=== PATIENT | female | born 1985 | race Caucasian/White ===

== ENCOUNTER 2017-05-09 11:36 | Outpatient (CLI) | payer OTHER ==
--- NOTE | 2017-05-09 14:22 | Ultrasound Report ---
RIGHT UPPER QUADRANT ULTRASOUND: HISTORY: Elevated liver enzymes, recent pancreatitis, pain.. Technique: Transabdominal ultrasound imaging with Doppler interrogation. FINDINGS: No comparison at this facility. The liver parenchyma is echogenic and attenuates the ultrasound beam consistent with mild fatty infiltration. The liver is borderline enlarged. No focal liver mass or surface nodularity is detected. The gallbladder has been surgically removed. The CBD measures 4.5 mm. No intrahepatic biliary dilatation. Images of the pancreas, right kidney and proximal aorta are within normal limits. No perihepatic ascites. IMPRESSION: Hepatic steatosis. Cholecystectomy.
== END 2017-05-09 11:37 | disposition home or self-care (01) ==
LOC: US 11:36
PROVIDERS: ATTEND Internal Medicine
DX: K76.0 Fatty (change of) liver, not elsewhere classified (principal); K85.90 Acute pancreatitis without necrosis or infection, unspecified; R94.5 Abnormal results of liver function studies; Z90.49 Acquired absence of other specified parts of digestive tract
CPT/HCPCS: 76705

== ENCOUNTER 2017-11-14 18:14 | Outpatient (CLI) | payer MEDICAID ==
[2017-11-14 19:13] VITALS: BP 139/82
== END 2017-11-14 20:32 | disposition home or self-care (01) ==
LOC: TRG 18:14
PROVIDERS: ATTEND Obstetrics & Gynecology
DX: O47.03 False labor before 37 completed weeks of gestation, third trimester (principal); Z3A.32 32 weeks gestation of pregnancy
CPT/HCPCS: 59025

== ENCOUNTER 2017-11-28 17:15 | Outpatient (CLI) | payer MEDICAID ==
--- NOTE | 2017-11-28 18:30 | Ultrasound Report ---
FINAL REPORT PROCEDURE: Ultrasound biophysical profile without nonstress test. TECHNIQUE: Sonographic evaluation for breathing, movement, tone, and amniotic fluid volume was performed. CPT 06888 HISTORY: Evaluate well-being. COMPARISON: No prior studies are available for comparison. FINDINGS: Amniotic fluid volume: 2. breathin. movement: 2. tone: 2. Score: 8 of 8. IMPRESSION: Normal biophysical profile.
--- NOTE | 2017-11-28 18:33 | Ultrasound Report ---
FINAL REPORT PROCEDURE: Limited obstetrical ultrasound. TECHNIQUE: Real-time limited sonographic examination was performed for evaluation of size, position, heartbeat, fluid volume for each fetus with image documentation (1 or more fetuses). CPT 45781 HISTORY: Evaluate well-being and amniotic fluid index. COMPARISON: No prior studies are available for comparison. FINDINGS: There is a single viable fetus in cephalic presentation. Cardiac activity is documented at 174 beats per minute. The amniotic fluid index measures 23.4 centimeters. IMPRESSION: Viable fetus in cephalic presentation. MARTIN measures 23.4 centimeters.
[2017-11-28 18:37] VITALS: BP 133/74
[2017-11-28] MEDS ORDERED: LACTATED RINGERS 1,000 ML IV ONE (18:59)
== END 2017-11-28 20:05 | disposition home or self-care (01) ==
LOC: TRG 17:15
PROVIDERS: ATTEND Obstetrics & Gynecology
DX: O47.03 False labor before 37 completed weeks of gestation, third trimester (principal); Z3A.34 34 weeks gestation of pregnancy
CPT/HCPCS: 59025; 76815; 76819; 96360; J7120

== ENCOUNTER 2017-12-12 15:59 | Outpatient (CLI) | payer MEDICAID ==
[2017-12-12] MEDS ORDERED: LACTATED RINGERS 500 ML IV ONE (16:12)
[2017-12-12 17:24] LABS: Bacteria,Urine 2+ /HPF (Negative); Bilirubin,Urine NEG (Negative); Blood,Urine NEG (Negative); Color,Urine Yellow (Yellow); Mucus,Urine FEW /HPF; Urobilinogen,Urine < 2.0 mg/dL (<2.0)
[2017-12-12 17:31] LABS: Hemoglobin 11.9 gm/dl (10.1-14.3); Mean Corpuscular HGB Conc 34 % (30-34); Mean Corpuscular Hemoglobin 29 pg (28-32); Mean Corpuscular Volume 85 fl (79-97); Platelet Count 230 K/mm3 (140-440); Red Blood Count 4.12 M/mm3 (3.65-5.03); Red Cell Distribution Width 15.1 % (13.2-15.2)
[2017-12-12 18:19] LABS: Alanine Aminotransferase 16 units/L (7-56)
== END 2017-12-12 19:05 | disposition home or self-care (01) ==
LOC: TRG 15:59
PROVIDERS: ATTEND Obstetrics & Gynecology
DX: O47.03 False labor before 37 completed weeks of gestation, third trimester (principal); Z3A.36 36 weeks gestation of pregnancy
CPT/HCPCS: 36415; 59025; 81001; 82565; 83615; 84450; 84460; 84550; 85027

== ENCOUNTER 2017-12-19 15:14 | Inpatient (IN) | payer MEDICAID ==
--- NOTE | 2017-12-19 16:50 | History and Physical Report ---
History of Present Illness Date of examination: 12/19/17 Date of admission: 12/19/17 15:14 Chief complaint: Induction for Pre-E History of present illness: 32 y/o at 37+2 wks presents for labour induction; she is a [facility] patient. Essential hx is patient with recently diagnosed pre-eclampsia presents to clinic with severe headache. Her BP has been labile with range 120-150's/80- 90's. She was recently started on anti-HTN. She also has pregestational DM managed by [facility]. Her insulin regimine is 20N12R/18R/32N She denies LOF/VB/UC's +FM Past History Past Medical History: diabetes Past Surgical History: no surgical history [employer] History: denies: chlamydia, gonorrhea, hepatitis B, hepatitis C, herpes, HIV , syphilis, trichomonas Social history: full code. denies: smoking, alcohol abuse, prescription drug abuse, IV drug use - Obstetrical History Expected Date of Delivery: 01/07/18 Actual Gestation: 37 Week(s) 2 Day(s) : 1 Medications and Allergies Allergies Allergy/AdvReac Type Severity Reaction Status Date / Time Iodinated Contrast- Oral and AdvReac Severe Shortness Unverified 12/19/17 16:01 IV Dye of Breath [Iodinated Contrast Media - IV Dye] Home Medications Medication Instructions Recorded Confirmed Last Taken Type Docusate Sodium [Colace] 100 mg PO QDAY PRN 12/12/17 12/12/17 12/12/17 08:30 History Ferrous Gluconate [Iron 256 MG tab] 1 tab PO QDAY 12/12/17 12/12/17 12/12/17 08: 30 History Insulin NPH Human Isophane 20 units SUB-Q QAM 12/12/17 12/12/17 12/12/17 09:00 History Insulin NPH Human Isophane 38 units SUB-Q QHS 12/12/17 12/12/17 12/11/17 23:00 History Insulin Regular, Human 12 units SUB-Q QAM 12/12/17 12/12/17 12/12/17 09:00 History Insulin Regular, Human 20 units SUB-Q QPM 12/12/17 12/12/17 12/11/17 19:00 History Pnv No.95/Ferrous Fum/Folic AC 1 tab PO QDAY 12/12/17 12/12/17 12/12/17 08:30 History [ Formula Tablet] Review of Systems Constitutional: no fever, no chills, no malaise, no lethargy, no chronic headaches Eyes: no blurred vision, no diplopia, no photophobia, no blind spots Ears, nose, mouth and throat: headache Cardiovascular: high blood pressure, no chest pain, no orthopnea, no rapid/ irregular heart beat, no lightheadedness, no shortness of breath, no dyspnea on exertion Respiratory: no cough, no shortness of breath, no dyspnea on exertion Gastrointestinal: no abdominal pain, no nausea, no vomiting, no heartburn, no indigestion Genitourinary: no vaginal bleeding, no leakage of fluid, no pelvic pain, no contractions - Vital Signs Vital signs: Vital Signs Temp Pulse Resp BP Pulse Ox 97.4 F L 94 H 18 131/79 97 12/19/17 16:02 12/19/17 16:02 12/19/17 16:02 12/19/17 16:02 12/19/17 16:02 Temp Pulse Resp BP Pulse Ox 97.4 F L 94 H 18 131/79 97 12/19/17 16:02 12/19/17 16:02 12/19/17 16:02 12/19/17 16:02 12/19/17 16:02 - Physical Exam Cardiovascular: Regular rate, Normal S1, Normal S2 Lungs: Positive: Clear to auscultation, Normal air movement Abdomen: Positive: normal appearance, soft. Negative: distention, tenderness, guarding, rigidity Genitourinary (Female): Positive: normal external genitalia Uterus: Positive: enlarged (EFW ~ 3500) Extremities: Positive: normal Results All other labs normal. Assessment and Plan A: 32 y/o at 37+2 wks with pre-E and now headache -Stable -GBS pos -Insulin is 20N12R Q AM; 18R Qpm and 32N Qhs P: -Admit -Routine labs -Start Mag for BP persistently in severe range -SSI insulin -Start induction process -Start GBS prophylaxis in active labour -Anticipate - Patient Problems (1) 37 weeks gestation of Current Visit: Yes Status: Acute (2) Pre-eclampsia Current Visit: Yes Status: Acute
[2017-12-19] MEDS ORDERED: BRETHINE IVP PRN (16:57)
[2017-12-19] MEDS ORDERED: CERVIDIL VG ONE (16:57)
[2017-12-19] MEDS ORDERED: ePHEDrine SULFATE IV PRN (16:57)
[2017-12-19] MEDS ORDERED: BRETHINE SUB-Q PRN (16:57)
[2017-12-19] MEDS ORDERED: XYLOCAINE 2% INFILTRATI ONE (16:57)
[2017-12-19] MEDS ORDERED: MINERAL OIL PO PRN (16:57)
[2017-12-19] MEDS ORDERED: LACTATED RINGERS 1,000 ML ONE (16:58)
[2017-12-19] MEDS ORDERED: PITOCin/NS 20 UNIT/1000ML DRIP 20 UNITS/1,000 ML BAG IV SCH (17:00)
[2017-12-19] MEDS ORDERED: PITOCin/NS 30 UNIT/500ML 30 UNITS/500 ML BAG IV SCH (17:00)
[2017-12-19] MEDS ORDERED: D50W (25GM) Syringe IV PRN (17:01)
[2017-12-19] MEDS ORDERED: TYLENOL PO ONE (17:30)
[2017-12-19 17:49] LABS: Hematocrit 37.3 % (30.3-42.9); Hemoglobin 12.2 gm/dl (10.1-14.3); Mean Corpuscular HGB Conc 33 % (30-34); Mean Corpuscular Hemoglobin 29 pg (28-32); Mean Corpuscular Volume 88 fl (79-97); Platelet Count 223 K/mm3 (140-440); Red Blood Count 4.25 M/mm3 (3.65-5.03); Red Cell Distribution Width 15.1 % (13.2-15.2)
[2017-12-19 18:03] LABS: Alanine Aminotransferase 19 units/L (7-56); BUN/Creatinine Ratio 20; Blood Urea Nitrogen 10 mg/dL (7-17); Calcium 8.8 mg/dL (8.4-10.2); Hemolysis Index 18
[2017-12-19 18:04] LABS: Bacteria,Urine 1+ /HPF (Negative); Bilirubin,Urine NEG (Negative); Blood,Urine NEG (Negative); Color,Urine Yellow (Yellow); Mucus,Urine 1+ /HPF; Protein,Urine <15 mg/dL mg/dL (Negative); Urobilinogen,Urine < 2.0 mg/dL (<2.0)
[2017-12-19] MEDS: HumuLIN R SUB-Q SCH ×3 (19:57→23:06)
[2017-12-19] MEDS: LACTATED RINGERS 1,000 ML IV SCH (21:45)
[2017-12-19] MEDS: NORMODYNE PO SCH (22:53)
[2017-12-19] MEDS: TYLENOL PO PRN (23:20)
[2017-12-20] MEDS: SUBLIMAZE IV PRN ×2 (00:53→20:53)
[2017-12-20] MEDS: HumuLIN R SUB-Q SCH ×4 (05:31→20:54)
[2017-12-20] MEDS: TYLENOL PO PRN ×2 (06:03→15:53)
[2017-12-20] MEDS: LACTATED RINGERS 1,000 ML IV SCH ×3 (07:51→23:29)
--- NOTE | 2017-12-20 09:26 | Progress Note ---
Assessment and Plan - Patient Problems (1) 37 weeks gestation of Current Visit: Yes Status: Acute (2) Pre-eclampsia Current Visit: Yes Status: Acute Plan to address problem: Cervidil #[address] Will continue BP, DTRs monitoring. Toxemia labs and Magnesium if BP becomes elevated. (3) Type 2 diabetes mellitus affecting in third trimester, antepartum Current Visit: Yes Status: Acute Plan to address problem: Will continue glucose monitoring and sliding scale insulin. Subjective - Subjective Date of service: 12/20/17 Principal diagnosis: Pre-gest DM, pre-eclampsia Interval history: Patient was admitted yesterday for labor induction secondary to pre-eclampsia and pre-gest DM. BP was elevated on admission, but toxemia labs were normal. Since admission, BP has been in the 120/80's. She denies any PALAFOX, visual changes or RUQ pain. Glucose has been stable, she is on a sliding scale. She reports good movement. Cervidil #1 was removed this AM. FHT is CAT 1. Cervix: closed/long/post. Objective - Vital Signs Vital Signs: Vital Signs - 12hr 12/19/17 12/19/17 12/19/17 21:48 22:53 22:55 Temperature 97.4 F L Pulse Rate 87 97 H Respiratory 22 20 Rate Blood Pressure 134/82 Blood Pressure 132/72 [Right] O2 Sat by Pulse 97 97 Oximetry 12/19/17 12/19/17 12/20/17 23:20 23:58 00:53 Temperature Pulse Rate 90 Respiratory 18 20 Rate Blood Pressure Blood Pressure 119/67 [Right] O2 Sat by Pulse Oximetry 12/20/17 12/20/17 12/20/17 00:54 01:49 02:46 Temperature Pulse Rate 84 71 71 Respiratory Rate Blood Pressure Blood Pressure 150/94 132/71 136/80 [Right] O2 Sat by Pulse Oximetry 12/20/17 12/20/17 12/20/17 03:48 04:47 05:48 Temperature 98.2 F Pulse Rate 88 86 81 Respiratory 20 Rate Blood Pressure Blood Pressure 136/82 133/94 147/85 [Right] O2 Sat by Pulse 97 96 Oximetry 12/20/17 12/20/17 12/20/17 06:03 06:48 07:46 Temperature 99.0 F Pulse Rate 85 90 Respiratory 18 18 Rate Blood Pressure Blood Pressure 117/71 136/78 [Right] O2 Sat by Pulse Oximetry - Exam Cardiovascular: Normal S1, Normal S2 Lungs: Clear to auscultation Vulva: both: normal FHR: category 1 Uterine Contraction Monitor Mode: External Cervical Dilatation: 0 Cervical Effacement Percentage: 10 station: -3 Uterine Contraction Pattern: Absent Deep Tendon Reflex Grade: Normal +2 - Labs Labs: Abnormal Labs 12/19/17 12/19/17 12/19/17 17:00 17:00 22:55 WBC 11.1 H Carbon Dioxide 21 L Creatinine 0.5 L Glucose 111 H POC Glucose 108 H Alkaline Phosphatase 159 H Albumin 3.0 L 12/20/17 05:31 WBC Carbon Dioxide Creatinine Glucose POC Glucose 66 L Alkaline Phosphatase Albumin Laboratory Results - last 24 hr 12/19/17 12/19/17 12/19/17 17:00 17:00 17:00 WBC 11.1 H RBC 4.25 Hgb 12.2 Hct 37.3 MCV 88 MCH 29 MCHC 33 RDW 15.1 Plt Count 223 Sodium 137 Potassium 4.0 Chloride 102.6 Carbon Dioxide 21 L Anion Gap 17 BUN 10 Creatinine 0.5 L Estimated GFR > 60 BUN/Creatinine Ratio 20 Glucose 111 H POC Glucose Calcium 8.8 Total Bilirubin 0.20 AST 37 ALT 19 Alkaline Phosphatase 159 H Total Protein 6.8 Albumin 3.0 L Albumin/Globulin Ratio 0.8 Urine Color Urine Turbidity Urine pH Ur Specific [place] Urine Protein Urine Glucose (UA) Urine Ketones Urine Blood Urine Nitrite Urine Bilirubin Urine Urobilinogen Ur Leukocyte Esterase Urine WBC (Auto) Urine RBC (Auto) U Epithel Cells (Auto) Urine Bacteria (Auto) Urine Mucus Blood Type O POSITIVE Antibody Screen Negative 12/19/17 12/19/17 12/19/17 17:00 17:15 22:55 WBC RBC Hgb Hct MCV MCH MCHC RDW Plt Count Sodium Potassium Chloride Carbon Dioxide Anion Gap BUN Creatinine Estimated GFR BUN/Creatinine Ratio Glucose POC Glucose 89 108 H Calcium Total Bilirubin AST ALT Alkaline Phosphatase Total Protein Albumin Albumin/Globulin Ratio Urine Color Yellow Urine Turbidity Clear Urine pH 5.0 Ur Specific [place] 1.018 Urine Protein <15 mg/dl Urine Glucose (UA) Neg Urine Ketones Neg Urine Blood Neg Urine Nitrite Neg Urine Bilirubin Neg Urine Urobilinogen < 2.0 Ur Leukocyte Esterase Lg Urine WBC (Auto) 6.0 Urine RBC (Auto) 7.0 U Epithel Cells (Auto) 6.0 Urine Bacteria (Auto) 1+ Urine Mucus 1+ Blood Type Antibody Screen 12/20/17 05:31 WBC RBC Hgb Hct MCV MCH MCHC RDW Plt Count Sodium Potassium Chloride Carbon Dioxide Anion Gap BUN Creatinine Estimated GFR BUN/Creatinine Ratio Glucose POC Glucose 66 L Calcium Total Bilirubin AST ALT Alkaline Phosphatase Total Protein Albumin Albumin/Globulin Ratio Urine Color Urine Turbidity Urine pH Ur Specific [place] Urine Protein Urine Glucose (UA) Urine Ketones Urine Blood Urine Nitrite Urine Bilirubin Urine Urobilinogen Ur Leukocyte Esterase Urine WBC (Auto) Urine RBC (Auto) U Epithel Cells (Auto) Urine Bacteria (Auto) Urine Mucus Blood Type Antibody Screen
[2017-12-20] MEDS: CYTOTEC VG SCH ×2 (10:00→14:12)
[2017-12-20] MEDS: NORMODYNE PO SCH ×2 (11:22→22:05)
[2017-12-20] MEDS ORDERED: CERVIDIL VG ONE (17:50)
--- NOTE | 2017-12-20 17:51 | Progress Note ---
Assessment and Plan - Patient Problems (1) 37 weeks gestation of Current Visit: Yes Status: Acute (2) Pre-eclampsia Current Visit: Yes Status: Acute Plan to address problem: Will place another cervidil tonight. Will continue BP, DTRs monitoring. Toxemia labs tonight. monitoring. (3) Type 2 diabetes mellitus affecting in third trimester, antepartum Current Visit: Yes Status: Acute Plan to address problem: Will continue glucose monitoring, sliding scale insulin, and ADA diet. Subjective - Subjective Date of service: 12/20/17 Principal diagnosis: Pre-gest DM, pre-eclampsia Interval history: Patient was admitted yesterday for labor induction secondary to pre-eclampsia and pre-gest DM. BP was elevated on admission, but toxemia labs were normal. Since admission, BP has been in the 120/80's. She denies any PALAFOX, visual changes or RUQ pain. Glucose has been stable, she is on a sliding scale. She reports good movement. Cervidil #1 was removed this AM. Cytotec was placed today but she has felt no contractions. FHT is CAT 1. Cervix: closed/long/post. Objective - Vital Signs Vital Signs: Vital Signs - 12hr 12/20/17 12/20/17 12/20/17 06:03 06:48 07:46 Temperature 99.0 F Pulse Rate 85 90 Respiratory 18 18 Rate Blood Pressure Blood Pressure 117/71 136/78 [Right] 12/20/17 12/20/17 12/20/17 10:40 11:22 12:00 Temperature 98.6 F Pulse Rate 83 83 Respiratory 18 Rate Blood Pressure 159/79 Blood Pressure 159/79 [Right] 12/20/17 12/20/17 12/20/17 12:40 13:33 13:39 Temperature Pulse Rate 86 85 82 Respiratory Rate Blood Pressure Blood Pressure 146/80 144/84 150/90 [Right] 12/20/17 12/20/17 12/20/17 14:40 15:39 15:53 Temperature 98.4 F Pulse Rate 83 78 Respiratory 18 Rate Blood Pressure Blood Pressure 160/81 158/100 [Right] 12/20/17 12/20/17 12/20/17 16:10 16:25 16:30 Temperature 98.2 F Pulse Rate 75 77 Respiratory 18 Rate Blood Pressure Blood Pressure 157/85 151/102 [Right] 12/20/17 16:53 Temperature Pulse Rate 83 Respiratory Rate Blood Pressure Blood Pressure 140/86 [Right] - Exam Cardiovascular: Normal S1, Normal S2 Lungs: Clear to auscultation Vulva: both: normal FHR: category 1 Uterine Contraction Monitor Mode: External Cervical Dilatation: 0 Cervical Effacement Percentage: 10 station: -3 Uterine Contraction Pattern: Absent Deep Tendon Reflex Grade: Normal +2 - Labs Labs: Abnormal Labs 12/19/17 12/19/17 12/19/17 17:00 17:00 22:55 WBC 11.1 H Carbon Dioxide 21 L Creatinine 0.5 L Glucose 111 H POC Glucose 108 H Alkaline Phosphatase 159 H Albumin 3.0 L 12/20/17 12/20/17 05:31 11:59 WBC Carbon Dioxide Creatinine Glucose POC Glucose 66 L 65 L Alkaline Phosphatase Albumin Laboratory Results - last 24 hr 12/19/17 12/19/17 12/19/17 17:00 17:00 17:00 WBC 11.1 H RBC 4.25 Hgb 12.2 Hct 37.3 MCV 88 MCH 29 MCHC 33 RDW 15.1 Plt Count 223 Sodium Potassium Chloride Carbon Dioxide Anion Gap BUN Creatinine Estimated GFR BUN/Creatinine Ratio Glucose POC Glucose Calcium Total Bilirubin AST ALT Alkaline Phosphatase Total Protein Albumin Albumin/Globulin Ratio Urine Color Urine Turbidity Urine pH Ur Specific [place] Urine Protein Urine Glucose (UA) Urine Ketones Urine Blood Urine Nitrite Urine Bilirubin Urine Urobilinogen Ur Leukocyte Esterase Urine WBC (Auto) Urine RBC (Auto) U Epithel Cells (Auto) Urine Bacteria (Auto) Urine Mucus RPR Nonreactive Blood Type O POSITIVE Antibody Screen Negative 12/19/17 12/19/17 12/19/17 17:00 17:00 22:55 WBC RBC Hgb Hct MCV MCH MCHC RDW Plt Count Sodium 137 Potassium 4.0 Chloride 102.6 Carbon Dioxide 21 L Anion Gap 17 BUN 10 Creatinine 0.5 L Estimated GFR > 60 BUN/Creatinine Ratio 20 Glucose 111 H POC Glucose 108 H Calcium 8.8 Total Bilirubin 0.20 AST 37 ALT 19 Alkaline Phosphatase 159 H Total Protein 6.8 Albumin 3.0 L Albumin/Globulin Ratio 0.8 Urine Color Yellow Urine Turbidity Clear Urine pH 5.0 Ur Specific [place] 1.018 Urine Protein <15 mg/dl Urine Glucose (UA) Neg Urine Ketones Neg Urine Blood Neg Urine Nitrite Neg Urine Bilirubin Neg Urine Urobilinogen < 2.0 Ur Leukocyte Esterase Lg Urine WBC (Auto) 6.0 Urine RBC (Auto) 7.0 U Epithel Cells (Auto) 6.0 Urine Bacteria (Auto) 1+ Urine Mucus 1+ RPR Blood Type Antibody Screen 12/20/17 12/20/17 05:31 11:59 WBC RBC Hgb Hct MCV MCH MCHC RDW Plt Count Sodium Potassium Chloride Carbon Dioxide Anion Gap BUN Creatinine Estimated GFR BUN/Creatinine Ratio Glucose POC Glucose 66 L 65 L Calcium Total Bilirubin AST ALT Alkaline Phosphatase Total Protein Albumin Albumin/Globulin Ratio Urine Color Urine Turbidity Urine pH Ur Specific [place] Urine Protein Urine Glucose (UA) Urine Ketones Urine Blood Urine Nitrite Urine Bilirubin Urine Urobilinogen Ur Leukocyte Esterase Urine WBC (Auto) Urine RBC (Auto) U Epithel Cells (Auto) Urine Bacteria (Auto) Urine Mucus RPR Blood Type Antibody Screen
[2017-12-20 18:30] LABS: Hematocrit 34.4 % (30.3-42.9); Hemoglobin 11.4 gm/dl (10.1-14.3); Mean Corpuscular HGB Conc 33 % (30-34); Mean Corpuscular Hemoglobin 29 pg (28-32); Mean Corpuscular Volume 87 fl (79-97); Platelet Count 206 K/mm3 (140-440); Red Blood Count 3.98 M/mm3 (3.65-5.03); Red Cell Distribution Width 15.2 % (13.2-15.2)
[2017-12-20 18:53] LABS: Alanine Aminotransferase 17 units/L (7-56); Uric Acid 3.8 mg/dL (3.5-7.6)
[2017-12-20] MEDS ORDERED: AMBIEN PO PRN (23:20)
[2017-12-21] MEDS: HumuLIN R SUB-Q SCH ×4 (01:06→20:00)
[2017-12-21] MEDS: SUBLIMAZE IV PRN ×2 (01:21→06:32)
[2017-12-21] MEDS: CYTOTEC VG SCH ×3 (01:48→09:04)
[2017-12-21] MEDS: LACTATED RINGERS 1,000 ML IV SCH ×2 (06:33→13:35)
--- NOTE | 2017-12-21 09:15 | Progress Note ---
Assessment and Plan - Patient Problems (1) 37 weeks gestation of Current Visit: Yes Status: Acute (2) Pre-eclampsia Current Visit: Yes Status: Acute Plan to address problem: Will continue BP, DTRs monitoring. Toxemia labs normal. and toco monitoring. Cytotec was placed at 9:10 AM. (3) Type 2 diabetes mellitus affecting in third trimester, antepartum Current Visit: Yes Status: Acute Plan to address problem: Will continue glucose monitoring, sliding scale insulin, and ADA diet. Subjective - Subjective Date of service: 12/21/17 Principal diagnosis: Pre-gest DM, pre-eclampsia Interval history: Patient was admitted yesterday for labor induction secondary to pre-eclampsia and pre-gest DM. BP was elevated on admission. Toxemia labs were normal. Since admission, BP has been in the 120/80's. She denies any PALAFOX, visual changes or RUQ pain. Glucose has been stable, she is on a sliding scale. She reports good movement. Cervidil 2 doses were placed. Patient is feeling cramps and occasional contractions. FHT is CAT 1. Cervix: closed/50%/mid. Objective - Vital Signs Vital Signs: Vital Signs - 12hr 12/20/17 12/20/17 12/20/17 22:00 22:05 23:00 Temperature Pulse Rate 80 77 Respiratory Rate Blood Pressure 139/81 Blood Pressure 139/72 144/94 [Right] 12/21/17 12/21/17 12/21/17 00:30 01:00 01:21 Temperature 98.4 F Pulse Rate 91 H 92 H Respiratory 18 Rate Blood Pressure Blood Pressure 148/80 150/80 [Right] 12/21/17 12/21/17 12/21/17 02:00 03:00 04:00 Temperature 98 F Pulse Rate 94 H 89 96 H Respiratory 18 Rate Blood Pressure Blood Pressure 136/86 123/88 132/90 [Right] 12/21/17 12/21/17 06:00 07:00 Temperature Pulse Rate 85 86 Respiratory Rate Blood Pressure Blood Pressure 135/75 132/78 [Right] - Exam Cardiovascular: Normal S1, Normal S2 Lungs: Clear to auscultation Vulva: both: normal FHR: category 1 Uterine Contraction Monitor Mode: External Cervical Dilatation: 0 Cervical Effacement Percentage: 50 station: -2 Uterine Contraction Pattern: Irregular Uterine Contraction Intensity: Mild Deep Tendon Reflex Grade: Normal +2 - Labs Labs: Abnormal Labs 12/19/17 12/19/17 12/19/17 17:00 17:00 22:55 WBC 11.1 H Carbon Dioxide 21 L Creatinine 0.5 L Glucose 111 H POC Glucose 108 H Alkaline Phosphatase 159 H Albumin 3.0 L 12/20/17 12/20/17 12/20/17 05:31 11:59 18:02 WBC Carbon Dioxide Creatinine Glucose POC Glucose 66 L 65 L 113 H Alkaline Phosphatase Albumin 12/20/17 12/20/17 12/21/17 18:20 18:20 00:14 WBC 11.8 H Carbon Dioxide Creatinine 0.4 L Glucose POC Glucose 53 L Alkaline Phosphatase Albumin 12/21/17 12/21/17 12/21/17 01:19 02:42 06:29 WBC Carbon Dioxide Creatinine Glucose POC Glucose 55 L 60 L 68 L Alkaline Phosphatase Albumin Laboratory Results - last 24 hr 12/19/17 12/20/17 12/20/17 17:00 11:59 18:02 WBC RBC Hgb Hct MCV MCH MCHC RDW Plt Count Creatinine Estimated GFR POC Glucose 65 L 113 H Uric Acid AST ALT Lactate Dehydrogenase RPR Nonreactive 12/20/17 12/20/17 12/21/17 18:20 18:20 00:14 WBC 11.8 H RBC 3.98 Hgb 11.4 Hct 34.4 MCV 87 MCH 29 MCHC 33 RDW 15.2 Plt Count 206 Creatinine 0.4 L Estimated GFR > 60 POC Glucose 53 L Uric Acid 3.8 AST 33 ALT 17 Lactate Dehydrogenase 152 RPR 12/21/17 12/21/17 12/21/17 01:19 02:42 06:29 WBC RBC Hgb Hct MCV MCH MCHC RDW Plt Count Creatinine Estimated GFR POC Glucose 55 L 60 L 68 L Uric Acid AST ALT Lactate Dehydrogenase RPR
[2017-12-21] MEDS ORDERED: STADOL IV PRN (10:08)
[2017-12-21] MEDS: NORMODYNE PO SCH ×2 (10:13→22:35)
--- NOTE | 2017-12-21 13:43 | Anesthesia Consultation ---
Anesthesia Consult and Med Hx Date of service: 12/21/17 - Airway Anesthetic Teeth Evaluation: Good ROM Head & Neck: Adequate Mental/Hyoid Distance: Adequate Mallampati Class: Class III Intubation Access Assessment: Possibly Difficult - Pre-Operative Health Status ASA Pre-Surgery Classification: ASA3 Proposed Anesthetic Plan: Epidural, Spinal - Pulmonary Hx Asthma: No COPD: No Hx Pneumonia: No - Cardiovascular System Hx Hypertension: Yes - Central Nervous System Hx Seizures: No Hx Psychiatric Problems: No - Endocrine Hx Renal Disease: No Hx End Stage Renal Disease: No Hx Non-Insulin Dependent Diabetes: Yes Hx Hypothyroidism: No Hx Hyperthyroidism: No - Hematic Hx Anemia: Yes Hx Sickle Cell Disease: No - Other Systems Hx Alcohol Use: No Hx Obesity: Yes
--- NOTE | 2017-12-21 13:44 | Anesthesia Day of Surgery ---
Anesthesia Day of Surgery - Day of Surgery Patient Examined: Yes Patient H&P Reviewed: Yes Patient is NPO: Yes
[2017-12-21] MEDS ORDERED: PHENERGAN PO PRN (13:45)
[2017-12-21] MEDS ORDERED: PHENERGAN PR PRN (13:45)
[2017-12-21] MEDS ORDERED: ZOFRAN IV PRN ×2 (13:45→16:02)
[2017-12-21] MEDS ORDERED: BENADRYL IV PRN (13:45)
[2017-12-21] MEDS ORDERED: DILAUDID IV PRN (13:45)
[2017-12-21] MEDS ORDERED: NARCAN 0.4 MG/1 ML IV PRN ×2 (13:45→16:02)
[2017-12-21] MEDS ORDERED: TORADOL IV PRN ×3 (13:45→16:02)
[2017-12-21] MEDS ORDERED: PITOCin/NS 20 UNIT/1000ML DRIP IV ONE (14:00)
[2017-12-21] MEDS ORDERED: REGLAN ONE (14:00)
[2017-12-21] MEDS ORDERED: PEPCID IV ONE (14:00)
[2017-12-21] MEDS ORDERED: ANCEF/STERILE WATER 2 GM/20 ML IV ONE (14:00)
[2017-12-21] MEDS ORDERED: METHERGINE IM ONE (14:00)
[2017-12-21] MEDS ORDERED: SODIUM CHLORIDE FLUSH SYRINGE 10 ML IV SCH ×2 (14:00→17:00)
[2017-12-21] MEDS ORDERED: BICITRA ONE (14:00)
[2017-12-21] MEDS ORDERED: PEPCID IV SCH (14:01)
[2017-12-21] MEDS ORDERED: REGLAN IV SCH (14:01)
[2017-12-21] MEDS ORDERED: BICITRA PO SCH (14:01)
--- NOTE | 2017-12-21 14:07 | Progress Note ---
Assessment and Plan - Patient Problems (1) 37 weeks gestation of Current Visit: Yes Status: Acute (2) Pre-eclampsia Current Visit: Yes Status: Acute Plan to address problem: Will continue BP, DTRs monitoring. Toxemia labs normal. and toco monitoring. (3) Type 2 diabetes mellitus affecting in third trimester, antepartum Current Visit: Yes Status: Acute Plan to address problem: Patient was counselled for cesarian section for failed induction. Risks and benefits of the procedure were discussed with her such as infection, hemorrhage requiring blood transfusion, injury to the bowel, bladder and blood vessels. she expressed understanding, her questions were answered, she gave her informed consent. Anesthesia has been notified. NICU notified. Keep NPO. (4) Failed induction of labor Current Visit: Yes Status: Acute Plan to address problem: Cesarian section. Subjective - Subjective Date of service: 12/21/17 Principal diagnosis: Pre-gest DM, pre-eclampsia Interval history: Patient was admitted 2 days ago for labor induction secondary to pre-eclampsia and pre-gest DM. BP was elevated on admission. Toxemia labs were normal. Since admission, BP has been in the 120/80's. She denies any PALAFOX, visual changes or RUQ pain. Glucose has been stable, she is on a sliding scale. She reports good movement. Cervidil (2 doses) were given. Patient is feeling cramps and occasional contractions. FHT is CAT 1. Cervix: closed/50%/mid. Patient stopped feeling the cramps and her cervix has not changed. Objective - Vital Signs Vital Signs: Vital Signs - 12hr 12/21/17 12/21/17 12/21/17 03:00 04:00 06:00 Temperature 98 F Pulse Rate 89 96 H 85 Respiratory 18 Rate Blood Pressure Blood Pressure 123/88 132/90 135/75 [Right] O2 Sat by Pulse Oximetry 12/21/17 12/21/17 12/21/17 07:00 09:09 10:13 Temperature 98.5 F Pulse Rate 86 86 Respiratory 18 Rate Blood Pressure 144/91 Blood Pressure 132/78 146/90 [Right] O2 Sat by Pulse 96 Oximetry 12/21/17 11:18 Temperature Pulse Rate Respiratory Rate Blood Pressure Blood Pressure 127/77 [Right] O2 Sat by Pulse Oximetry - Exam Cardiovascular: Normal S1, Normal S2 Lungs: Clear to auscultation Vulva: both: normal FHR: category 1 Uterine Contraction Monitor Mode: External Cervical Dilatation: 0 Cervical Effacement Percentage: 50 station: -2 Uterine Contraction Pattern: Absent Deep Tendon Reflex Grade: Normal +2 - Labs Labs: Abnormal Labs 12/19/17 12/19/17 12/19/17 17:00 17:00 22:55 WBC 11.1 H Carbon Dioxide 21 L Creatinine 0.5 L Glucose 111 H POC Glucose 108 H Alkaline Phosphatase 159 H Albumin 3.0 L 12/20/17 12/20/17 12/20/17 05:31 11:59 18:02 WBC Carbon Dioxide Creatinine Glucose POC Glucose 66 L 65 L 113 H Alkaline Phosphatase Albumin 12/20/17 12/20/17 12/21/17 18:20 18:20 00:14 WBC 11.8 H Carbon Dioxide Creatinine 0.4 L Glucose POC Glucose 53 L Alkaline Phosphatase Albumin 12/21/17 12/21/17 12/21/17 01:19 02:42 06:29 WBC Carbon Dioxide Creatinine Glucose POC Glucose 55 L 60 L 68 L Alkaline Phosphatase Albumin 12/21/17 12:23 WBC Carbon Dioxide Creatinine Glucose POC Glucose 66 L Alkaline Phosphatase Albumin Laboratory Results - last 24 hr 12/20/17 12/20/17 12/20/17 18:02 18:20 18:20 WBC 11.8 H RBC 3.98 Hgb 11.4 Hct 34.4 MCV 87 MCH 29 MCHC 33 RDW 15.2 Plt Count 206 Creatinine 0.4 L Estimated GFR > 60 POC Glucose 113 H Uric Acid 3.8 AST 33 ALT 17 Lactate Dehydrogenase 152 12/21/17 12/21/17 12/21/17 00:14 01:19 02:42 WBC RBC Hgb Hct MCV MCH MCHC RDW Plt Count Creatinine Estimated GFR POC Glucose 53 L 55 L 60 L Uric Acid AST ALT Lactate Dehydrogenase 12/21/17 12/21/17 06:29 12:23 WBC RBC Hgb Hct MCV MCH MCHC RDW Plt Count Creatinine Estimated GFR POC Glucose 68 L 66 L Uric Acid AST ALT Lactate Dehydrogenase
[2017-12-21] MEDS ORDERED: NACL 0.9% IR ONE (14:40)
[2017-12-21] MEDS ORDERED: WATER FOR IRRIG STERILE IR ONE (14:40)
[2017-12-21] MEDS ORDERED: ANCEF/STERILE WATER 2 GM/20 ML 2 GM/20 ML SYRINGE IV NR (15:00)
[2017-12-21] MEDS ORDERED: LACTATED RINGERS 1,000 ML IV SCH (15:00)
[2017-12-21] MEDS ORDERED: NEO SYNEPHRINE/NS Syringe(OR USE) IV ONE (15:07)
[2017-12-21] MEDS ORDERED: HEMABATE IM ONE ×2 (15:22→17:29)
[2017-12-21] MEDS ORDERED: ZOFRAN ONE (15:22)
[2017-12-21] MEDS ORDERED: ASTRAMORPH PF 10MG/10ML ONE (15:27)
[2017-12-21] MEDS ORDERED: TYLENOL PO PRN (16:02)
[2017-12-21] MEDS ORDERED: MORPHINE IV PRN (16:02)
[2017-12-21] MEDS ORDERED: SENOKOT PO PRN (16:02)
[2017-12-21] MEDS ORDERED: TUCKS PAD TP PRN (16:02)
[2017-12-21] MEDS ORDERED: MILK OF MAGNESIA PO PRN (16:02)
[2017-12-21] MEDS ORDERED: LANSINOH TP PRN (16:02)
[2017-12-21] MEDS ORDERED: MYLICON PO PRN (16:02)
--- NOTE | 2017-12-21 16:18 | Operative Report ---
Operative Report Operative Report: Preoperative diagnosis: 1. SIUP at 37 weeks and 6 days gestation with failed induction. 2. Pre-gestational diabetes type 2. 3. Chronic hypertension. Postoperative diagnosis: same as pre-operative diagnosis. Procedure: Primary low-transverse section. Surgeon: Dr. Campuzano Diesel Maintenance Electrician: none Anesthesia: Epidural IVF: 1500 mL of Ringer's lactate EBL: 700 mL Urine: 50 cc clear Complications: Intraoperative uterine atony responsive to IV Pitocin and myometrial Hemabate. Intraoperative findings: 1. A female found in ESTEBAN position, delivered at 3:12 PM, Apgars 8 at 1 minutes and 9 at 5 minutes, weight 7 lbs. 9 oz. 2. Normal ovaries and fallopian tubes bilaterally. Procedure details: Risks, benefits, and alternatives of the procedure were discussed in detail with the patient, which included but not limited to the risk of infection, hemorrhage requiring blood transfusion, injury to the bowel or bladder and blood vessels. The patient expressed understanding, her questions were answered , and she gave informed consent. The patient was taken to the operating room with an IV fluids infusing Ringers lactate. In the operating room, she was placed in a sitting position and given epidural anesthesia. She was then placed in a supine position with a leftward tilt. Venodyne boots and Andersen catheter were placed. The abdomen was washed and she was prepared and draped in the usual sterile fashion. After confirming adequate epidural anesthesia, a Pfannenstiel skin incision was made in the lower abdomen about 2 cm above the pubic symphysis using the scalpel. This incision was carried down to the underlying fascia using the Bovie. The fascia was incised bilaterally in a curvilinear fashion using the Bovie. 2 straight Kocker clamps were used to grasp the upper edge of the fascia from which the underlying rectus abdominis muscle was dissected off using the Bovie. A similar procedure was done with the lower edge of the fascia to dissect the underlying rectus abdominis muscle. The muscle was bluntly from the midline by pulling. The parietal peritoneum was grasped with 2 hemostat clamps and entered sharply using Metzenbaum scissors. A quick survey of the anatomy revealed a gravid uterus, normal fallopian tubes, and ovaries bilaterally. A bladder flap was created. Santosh'O retractor was placed in the incision for proper visualization. Then, a low transverse incision was made in the lower uterine segment using the scalpel and extended bilaterally in a curvilinear fashion using bandage scissors. The amniotic sac was ruptured and there was copious amount of clear amniotic fluids. The infant was found in an ESTEBAN position. The head was delivered atraumatically followed by the delivery of delivery of the shoulders and rest of the body atraumatically at 3:12 PM. The cord was clamped 2 and cut the infant was handed off to the waiting litharge mill operator. The was a female, Apgars were 8 at 1 minute and 9 at 5 minutes, weight 7 pounds and 9 ounces. Cord blood was collected. The placenta was delivered manually and it was completed a three-vessel cord. There was uterine atony despite IV Pitocin. Myometrial Hemabate was given with good response. The uterine incision was repaired in a running locked fashion using 0 Vicryl sutures. A second layer of imbrication was placed. The gutters were cleaned of clots and debris using dry lap sponges. After confirming adequate hemostasis, the instruments were removed from the abdominal cavity. The fascia was closed in a running fashion using 0 Vicryl sutures. The skin was closed with cabrera. Sterile dressing was placed. The counts of laps, needles, sponges, and instruments were correct 2. The patient tolerated the procedure well. She was taken to the recovery room in a stable condition.
[2017-12-21] MEDS ORDERED: PITOCin/NS 20 UNIT/1000ML DRIP 20 UNITS/1,000 ML BAG IV SCH (17:00)
[2017-12-22] MEDS: HumuLIN R SUB-Q SCH ×3 (00:15→08:15)
[2017-12-22 04:21] LABS: Bacteria,Urine 1+ /HPF (Negative); Bilirubin,Urine NEG (Negative); Blood,Urine NEG (Negative); Color,Urine Yellow (Yellow); Hyaline Casts,Urine 1 /LPF; Mucus,Urine FEW /HPF; Protein,Urine <15 mg/dL mg/dL (Negative)
[2017-12-22] MEDS ORDERED: BOOSTRIX IM ONE (06:10)
[2017-12-22 06:36] LABS: Hematocrit 29.9 % (30.3-42.9); Hemoglobin 9.7 gm/dl (10.1-14.3)
[2017-12-22] MEDS: NORMODYNE PO SCH ×2 (08:24→22:25)
[2017-12-22] MEDS: FEOSOL PO SCH (08:24)
--- NOTE | 2017-12-22 10:11 | Progress Note ---
Assessment and Plan A: POD#1 S/P Primary Section Stable Pain well controlled Ambulating, voiding and eating without difficulty P: Routine PP/PO care Encouraged ambulation in room Subjective - Subjective Principal diagnosis: Primary C/S, GDM, PIH Patient reports: appetite normal, voiding normally, pain well controlled, flatus , ambulating normally, no bowel movement [place]: doing well, other (Both Breast and Bottle) Objective - Vital Signs Latest vital signs: Vital Signs Temp Pulse Resp BP BP Pulse Ox 12/22/17 08:08 99.2 F 84 20 126/69 93 12/22/17 04:38 98.4 F 76 18 119/67 96 12/21/17 23:49 98.4 F 65 20 159/79 93 12/21/17 19:52 98.0 F 67 16 137/86 95 12/21/17 17:15 61 16 143/80 96 12/21/17 17:10 98.0 F 63 16 134/74 96 12/21/17 17:05 70 15 115/70 98 12/21/17 17:00 58 L 16 130/76 97 12/21/17 16:55 56 L 18 120/70 96 12/21/17 16:50 56 L 18 129/67 95 12/21/17 16:45 60 19 122/67 96 12/21/17 16:40 61 16 120/62 97 12/21/17 16:35 57 L 15 121/69 98 12/21/17 16:30 59 L 118/64 97 12/21/17 16:25 58 L 16 120/62 97 12/21/17 16:20 58 L 17 115/63 12/21/17 16:15 61 16 109/65 12/21/17 16:12 97.9 F 62 16 116/61 96 12/21/17 11:18 127/77 12/21/17 10:13 144/91 Intake and Output 12/21/17 12/22/17 12/22/17 23:59 07:59 15:59 Intake Total 640 240 Output Total 900 350 Balance -260 -110 Intake: IV 400 Oral 240 240 Output: Urine 900 350 Indwelling Catheter 600 350 Other: Total, Intake Amount 240 240 Total, Output Amount 600 350 # Voids Void 1 # Bowel Movements 0 Estimated Blood Loss 700 - Exam Breasts: Present: normal, Cardiovascular: Present: Regular rate, Normal S1, Normal S2 Lungs: Present: Clear to auscultation, Normal air movement Abdomen: Present: normal appearance, soft, normal bowel sounds. Absent: distention Vulva: both: normal Uterus: Present: firm, fundal height below umbilicus (at U) Extremities: Present: normal Deep Tendon Reflex Grade: Normal +2 Incision: Present: normal (Pressure dressing removed. Minimal brown colored blood noted. Incision closed with cabrera, well approximated, CDI, no drainage. Incision care reviewed. ), dry, intact - Labs Labs: Abnormal lab results 12/21/17 12/22/17 12/22/17 Range/Units 12:23 00:41 03:30 Hgb (10.1-14.3) gm/dl Hct (30.3-42.9) % POC Glucose 66 L 108 H (70-105) Urine WBC (Auto) 29.0 H (0.0-6.0) /HPF 12/22/17 12/22/17 Range/Units 05:58 06:12 Hgb 9.7 L (10.1-14.3) gm/dl Hct 29.9 L (30.3-42.9) % POC Glucose 106 H (70-105) Urine WBC (Auto) (0.0-6.0) /HPF
[2017-12-22] MEDS: NORCO 5/325 PO PRN ×2 (16:05→22:25)
[2017-12-22] MEDS: MOTRIN PO PRN (16:05)
[2017-12-23] MEDS: HumuLIN R SUB-Q SCH ×4 (00:15→12:00)
[2017-12-23] MEDS ORDERED: BOOSTRIX IM ONE (07:47)
[2017-12-23] MEDS: MOTRIN PO PRN ×2 (08:20→17:22)
[2017-12-23] MEDS: NORCO 5/325 PO PRN ×2 (08:21→17:22)
[2017-12-23] MEDS: NORMODYNE PO SCH (10:28)
[2017-12-23] MEDS: FEOSOL PO SCH (10:28)
--- NOTE | 2017-12-23 12:24 | Progress Note ---
Assessment and Plan A: POD #2 PreGestational Diabetes Preeclampsia Asymptomatic Anemia P: Follow Routine Postop Orders Continue FeSO4 325mg PO BID Continue GDM Diet, Accuchecks, and Insulin Accordingly Continue Labetolol 200mg PO BIS D/C home today RTO in 1 week Subjective - Subjective Date of service: 12/23/17 Principal diagnosis: Primary C/S, GDM, PIH Patient reports: appetite normal, voiding normally, pain well controlled, flatus , ambulating normally, other (Denies all s/s of PIH) [place]: doing well, bottle feeding Objective - Vital Signs Latest vital signs: Vital Signs Temp Pulse Resp BP BP Pulse Ox 12/23/17 10:28 84 142/84 12/23/17 08:25 98.2 F 78 18 146/62 12/23/17 08:21 18 12/23/17 08:20 18 12/23/17 01:25 97.8 F 71 18 125/67 12/22/17 22:25 98.0 F 90 18 135/71 135/71 12/22/17 16:54 98.3 F 77 18 118/68 96 Intake and Output 12/22/17 12/23/17 12/23/17 22:59 06:59 14:59 Intake Total 240 240 360 Balance 240 240 360 Intake: Oral 240 360 Intake, Free Water 240 Other: Total, Intake Amount 240 360 # Voids Void 1 1 - Exam Breasts: Present: normal Cardiovascular: Present: Regular rate Lungs: Present: Clear to auscultation, Normal air movement Abdomen: Present: normal appearance, soft, normal bowel sounds Uterus: Present: normal, firm, fundal height below umbilicus Extremities: Present: edema (+1) Incision: Present: normal, dry, intact - Labs Labs: Abnormal lab results 12/22/17 Range/Units 17:23 POC Glucose 110 H (70-105)
--- NOTE | 2017-12-23 12:25 | Discharge Summary ---
Providers - Providers Date of Admission: 12/19/17 15:14 Date of discharge: 12/23/17 Attending physician: MICHELE MCWILLIAMS MD Primary care physician: MICHELE MCWILLIAMS MD Hospitalization Reason for admission: induction of labor Delivery: Procedure: primary low transverse Episiotomy: none Incision: normal, dry, intact Other procedures: none complications: none Discharge diagnosis: IUP at term delivered baby: female Condition at discharge: Good Disposition: DC-01 TO HOME OR SELFCARE Plan - Provider Discharge Summary Activity: routine, no sex for 6 weeks, no heavy lifting 4 weeks, no strenuous exercise Diet: routine Instructions: routine Additional instructions: [] Smoking cessation referral if applicable(refer to patient education folder for contact #) [] Refer to [facility] Booklet Call your doctor immediately for: * Fever > 100.5 * Heavy vaginal bleeding ( >1 pad per hour) * Severe persistent headache * Shortness of breath * Reddened, hot, painful area to leg or breast * Drainage or odor from incision. * Keep incision clean and dry at all times and follow doctor's instructions regarding bathing/showering - Follow up plan Follow up: MICHELE MCWILLIAMS MD [Primary Care Provider] - 7 Days
[2017-12-23 18:32] VITALS: BP 149/85
== END 2017-12-23 18:00 | disposition home or self-care (01) | DRG 765 ==
LOC: LD 15:14 → OB 12-21 17:57
PROVIDERS: ADMIT Obstetrics & Gynecology; ATTEND Obstetrics & Gynecology
PROC: 10D00Z1 Extraction of Products of Conception, Low, Open Approach (ICD-10-PCS; principal; 2017-12-21)
DX: O24.12 Pre-existing type 2 diabetes mellitus, in childbirth (principal); O11.4 Pre-existing hypertension with pre-eclampsia, complicating childbirth; O10.92 Unspecified pre-existing hypertension complicating childbirth; O61.8 Other failed induction of labor; O99.214 Obesity complicating childbirth; E66.9 Obesity, unspecified; D64.9 Anemia, unspecified; Z3A.37 37 weeks gestation of pregnancy; Z37.0 Single live birth; Z68.37 Body mass index [BMI] 37.0-37.9, adult; E11.9 Type 2 diabetes mellitus without complications; O90.81 Anemia of the puerperium; O62.2 Other uterine inertia; Z79.4 Long term (current) use of insulin
CPT/HCPCS: 36415; 59200; 80053; 81001; 82565; 82962; 83615; 84450; 84460; 84550; 85014; 85018; 85027; 86592; 86850; 86900; 86901; 88307; 90715; 99211; G0463; J0690; J1815; J1885; J2210; J2274; J2370; J2405; J2590; J2765; J3010; J7120

== ENCOUNTER 2021-05-25 18:11 | Outpatient (CLI) | payer MEDICAID ==
[2021-05-25] MEDS ORDERED: LACTATED RINGERS 1,000 ML IV SCH (18:45)
--- NOTE | 2021-05-25 19:20 | Ultrasound Report ---
ULTRASOUND BIOPHYSICAL PROFILE INDICATION: wellbeing. COMPARISON: None available. FINDINGS: heart rate is 151 beats per minute. breathing movement = 2 Gross body movement = 2 tone = 2 Qualitative amniotic fluid volume = 2 IMPRESSION: biophysical profile = 04/04 Signer Name: Alfonso Rush Jr, MD Signed: 05/25/2021 7:15 PM Workstation Name: [id number]
[2021-05-25 19:47] VITALS: BP 126/68
== END 2021-05-25 20:15 | disposition home or self-care (01) ==
LOC: TRG 18:11 → APU 18:13 → TRG 20:15
PROVIDERS: ATTEND Obstetrics & Gynecology
DX: O36.8330 Maternal care for abnormalities of the fetal heart rate or rhythm, third trimester, not applicable or unspecified (principal); O24.419 Gestational diabetes mellitus in pregnancy, unspecified control; O09.523 Supervision of elderly multigravida, third trimester; Z3A.32 32 weeks gestation of pregnancy
CPT/HCPCS: 59025; 76819; 96360; 96361; J7120

== ENCOUNTER 2021-06-01 11:19 | Outpatient (CLI) | payer MEDICAID ==
--- NOTE | 2021-06-01 13:21 | Ultrasound Report ---
ULTRASOUND BIOPHYSICAL PROFILE ULTRASOUND OB LIMITED INDICATION: NON REACTIVE NST IN CLINIC - [facility] TECHNIQUE: Transabdominal ultrasound imaging. COMPARISON: 05/25/2021 FINDINGS: breathing movement = 2 Gross body movement = 2 tone = 2 Qualitative amniotic fluid volume = 2 Total biophysical score = 8/8 Amniotic fluid index is 22.0 cm. Presentation is transverse with head to maternal right. heart rate is 160 beats per minute. IMPRESSION: biophysical profile equals 8/8. Signer Name: Alfonso Rush Jr, MD Signed: 06/01/2021 1:17 PM Workstation Name: [id number]
== END 2021-06-01 13:10 | disposition home or self-care (01) ==
LOC: TRG 11:19 → APU 11:21 → TRG 13:10
PROVIDERS: ATTEND Student in an Organized Health Care Education/Training Program
DX: O13.9 Gestational [pregnancy-induced] hypertension without significant proteinuria, unspecified trimester (principal); Z3A.00 Weeks of gestation of pregnancy not specified
CPT/HCPCS: 76815; 76819

== ENCOUNTER 2022-04-21 15:37 | Outpatient (CLI) | payer MEDICAID ==
[2022-04-21 16:31] LABS: Blood Urea Nitrogen 16 mg/dL (7-17); Calcium 9.8 mg/dL (8.4-10.2); Hemolysis Index 5
[2022-04-21 16:34] LABS: BUN/Creatinine Ratio 32
== END 2022-04-21 15:38 | disposition home or self-care (01) ==
LOC: LABHHL 15:37
PROVIDERS: ATTEND Internal Medicine
DX: E53.8 Deficiency of other specified B group vitamins (principal); E87.8 Other disorders of electrolyte and fluid balance, not elsewhere classified
CPT/HCPCS: 36415; 80048; 82607; 83735; 84100